=== PATIENT | male | born 1965 | race Caucasian/White ===

== ENCOUNTER 2019-12-05 14:13 | Emergency (ER) | payer BC ==
[2019-12-05 15:38] LABS: ANION GAP 6.3; CHLORIDE,CL 105 mmol/L (101-111); SODIUM,NA 136 mmol/L (135-145)
[2019-12-05] MEDS ORDERED: Aspirin 81 MG Tab.Chew PO ONE (15:49)
[2019-12-05] MEDS ORDERED: Nitroglycerin 0.4 MG Tab.SL SL ONE (15:49)
--- NOTE | 2019-12-05 15:59 | EDM.PDOC ---
ED HPI GENERAL MEDICAL PROBLEM - General Chief Complaint: Respiratory Problem Stated Complaint: CANT BREATH Time Seen by Provider: 12/05/19 15:45 Source of Information: Reports: Patient History Limitations: Reports: No Limitations - History of Present Illness INITIAL COMMENTS - FREE TEXT/NARRATIVE: This 54 yo male patient reports to the ED due to waking up from sleep at 1400 with increased shortness of breath and chest "tightness". The patient reports he has a history of elevated cholesterol levels and elevated triglycerides. The patient reports he took 1500 mg of Tylenol at symptom onset. The patient reports his chest tightness continues to be rated at a 6/10. Onset: Today Onset Date: 12/05/19 Onset Time: 14:00 Duration: Constant Location: Reports: Chest Quality: Reports: Dull, Other (pressure) Severity: Moderate Improves with: Reports: None Worsens with: Reports: None Context: Reports: Other Associated Symptoms: Reports: Chest Pain ("pressure") Middle Chest Pain Score (Numeric/FACES): 8 - Related Data Allergies Allergy/AdvReac Type Severity Reaction Status Date / Time Penicillins Allergy Anaphylactic Verified 12/05/19 15:02 Shock Home Meds: Home Meds Fluticasone Propionate [Flonase] 2 spray BRADEN ASDIRECTED 12/05/19 [History] Lisinopril/Hydrochlorothiazide [Lisinopril-Hctz 20-25 mg Tab] 1 tab PO DAILY [History] hydrOXYzine HCL [hydrOXYzine] 25 mg PO ASDIRECTED PRN 12/05/19 [History] Past Medical History HEENT History: Reports: None Cardiovascular History: Reports: Hypertension Respiratory History: Reports: Asthma Other Respiratory History: exercise induced Gastrointestinal History: Reports: None Genitourinary History: Reports: None Musculoskeletal History: Reports: None Neurological History: Reports: None Psychiatric History: Reports: None Endocrine/Metabolic History: Reports: None Hematologic History: Reports: None Immunologic History: Reports: None Oncologic (Cancer) History: Reports: None Dermatologic History: Reports: None - Infectious Disease History Infectious Disease History: Reports: None - Past Surgical History Head Surgeries/Procedures: Reports: None Social & Family History - Tobacco Use Smoking Status *Q: Never Smoker Second Hand Smoke Exposure: No - Caffeine Use Caffeine Use: Reports: Coffee - Recreational Drug Use Recreational Drug Use: No ED ROS GENERAL - Review of Systems Review Of Systems: Comprehensive ROS is negative, except as noted in HPI. ED EXAM, GENERAL - Physical Exam Exam: See Below Exam Limited By: No Limitations General Appearance: Alert, WD/WN, Moderate Distress Eye Exam: Bilateral Eye: EOMI, Normal Inspection, PERRL Ears: Normal External Exam, Normal Canal, Hearing Grossly Normal, Normal TMs Nose: Normal Inspection, Normal Mucosa, No Blood Throat/Mouth: Normal Inspection, Normal Lips, Normal Teeth, Normal Gums, Normal Oropharynx, Normal Voice, No Airway Compromise Head: Atraumatic, Normocephalic Neck: Normal Inspection, Supple, Non-Tender, Full Range of Motion Respiratory/Chest: No Respiratory Distress, Lungs Clear, Normal Breath Sounds, No Accessory Muscle Use, Chest Non-Tender Cardiovascular: Normal Peripheral Pulses, Regular Rate, Rhythm, No Edema, No Gallop, No JVD, No Murmur, No Rub GI/Abdominal: Normal Bowel Sounds, Soft, Non-Tender, No Organomegaly, No Distention, No Abnormal Bruit, No Mass (Male) Exam: Deferred Rectal (Males) Exam: Deferred Back Exam: Normal Inspection, Full Range of Motion, NT Extremities: Normal Inspection, Normal Range of Motion, Non-Tender, Normal Capillary Refill, No Pedal Edema Neurological: Alert, Oriented, CN II-XII Intact, Normal Cognition, Normal Gait, Normal Reflexes, No Motor/Sensory Deficits Psychiatric: Normal Affect, Normal Mood Skin Exam: Warm, Dry, Intact, Normal Color, No Rash Lymphatic: No Adenopathy Course - Vital Signs Last Recorded V/S: Last Vital Signs Temp 35.8 C L 12/05/19 14:56 Pulse 89 12/05/19 16:52 Resp 19 12/05/19 16:52 BP 118/73 12/05/19 16:52 Pulse Ox 99 12/05/19 16:52 - Orders/Labs/Meds Orders: Active Orders 24 hr Category Date Time Status EKG Documentation Completion [RC] URGENT Care 12/05/19 15:10 Ordered Enoxaparin [Lovenox] Med 12/05/19 16:58 Once 100 mg SUBCUT ONETIME ONE Medication Orders Enoxaparin Sodium (Lovenox) 100 mg SUBCUT ONETIME ONE Stop: 12/05/19 16:59 Labs: Laboratory Tests 12/05/19 12/05/19 Range/Units 15:16 15:16 WBC 8.7 (5.0-10.0) 10^3/uL RBC 5.29 (4.6-6.2) 10^6/uL Hgb 15.6 (14.0-18.0) g/dL Hct 45.4 (40.0-54.0) % MCV 85.8 (80-100) fL MCH 29.5 (27.0-34.0) pg MCHC 34.4 (33.0-35.0) g/dL Plt Count 277 (150-450) 10^3/uL Neut % (Auto) 61.1 (42.2-75.2) % Lymph % (Auto) 22.8 (20.5-50.1) % [place] % (Auto) 11.5 H (2-8) % Eos % (Auto) 3.3 H (1.0-3.0) % Baso % (Auto) 1.3 H (0.0-1.0) % Sodium 136 (135-145) mmol/L Potassium 3.3 L (3.6-5.0) mmol/L Chloride 105 (101-111) mmol/L Carbon Dioxide 28.0 (21.0-31.0) mmol/L Anion Gap 6.3 BUN 19 H (7-18) mg/dL Creatinine 1.0 (0.6-1.3) mg/dL Est Cr Clr Drug Dosing 92.03 mL/min Estimated GFR (MDRD) > 60 BUN/Creatinine Ratio 19.00 Glucose 111 H (74-105) mg/dL Calcium 8.6 (8.4-10.2) mg/dl Total Bilirubin 0.8 (0.2-1.0) mg/dL AST 35 (10-42) IU/L ALT 41 (10-60) IU/L Alkaline Phosphatase 59 (42-121) IU/L Troponin I 0.06 H* (0.00-0.02) ng/ml Total Protein 6.5 L (6.7-8.2) g/dl Albumin 3.7 (3.2-5.5) g/dl Globulin 2.8 Albumin/Globulin Ratio 1.32 Meds: Medications Generic Name Dose Route Start Last Admin Trade Name Freq PRN Reason Stop Dose Admin Enoxaparin Sodium 100 mg 12/05/19 16:58 Lovenox SUBCUT 12/05/19 16:59 ONETIME ONE Discontinued Medications Generic Name Dose Route Start Last Admin Trade Name Maria M PRN Reason Stop Dose Admin Aspirin 324 mg 12/05/19 15:49 12/05/19 15:55 Aspirin PO 12/05/19 15:50 324 mg ONETIME ONE Administration Nitroglycerin 0.4 mg 12/05/19 15:49 12/05/19 15:56 Nitrostat SL 12/05/19 15:50 0.4 mg ONETIME ONE Administration Departure - Departure Time of Disposition: 16:59 Disposition: Home, Self-Care 01 Condition: Fair Clinical Impression: NSTEMI (non-ST elevated myocardial infarction), Elevated troponin I level - Discharge Information *PRESCRIPTION DRUG MONITORING PROGRAM REVIEWED*: Not Applicable *COPY OF PRESCRIPTION DRUG MONITORING REPORT IN PATIENT GRICELDA: Not Applicable Forms: Interfacility Transfer EMTALA Care Plan Goals: Discussed the patient's history, examination, lab, EKG and x-ray results with Dr. Pinon (Hospitalist with [facility] in [place]). Dr. Pinon accepted the patient for continued evaluation and management. Dr. Pinon requested that the patient receive a dose of Lovenox (100mg) prior to transfer. The patient will be transported by [facility]. Sepsis Event Note - Evaluation Sepsis Screening Result: No Definite Risk - Focused Exam Vital Signs: Vital Signs Temp Pulse Resp BP BP Pulse Ox 12/05/19 16:52 89 19 118/73 99 12/05/19 15:57 154/91 H 12/05/19 15:56 162/97 H 12/05/19 14:56 35.8 C L 95 16 159/104 H 100 Date Exam was Performed: 12/05/19 Time Exam was Performed: 16:59 - My Orders Last 24 Hours: My Active Orders 12/05/19 15:10 EKG Documentation Completion [RC] URGENT 12/05/19 16:58 Enoxaparin [Lovenox] 100 mg SUBCUT ONETIME ONE - Assessment/Plan Last 24 Hours: My Active Orders 12/05/19 15:10 EKG Documentation Completion [RC] URGENT 12/05/19 16:58 Enoxaparin [Lovenox] 100 mg SUBCUT ONETIME ONE
--- NOTE | 2019-12-05 16:32 | CR ---
EXAMINATION: Chest 1V Frontal SEX: Male AGE: 54 years CLINICAL HISTORY: 54-year-old male shortness of breath and chest pain. INTERPRETATION: Negative exam. Normal cardiac silhouette and pulmonary vascularity. No congestion, cephalization of flow, alveolar edema or dependent effusion. (Oxygen cannula). No lung mass, hilar lymphadenopathy or focal lobar pneumonia. No atelectasis/collapse. No pneumothorax or pneumomediastinum.
[2019-12-05] MEDS ORDERED: Enoxaparin 100 MG/1 ML Syringe SUBCUT ONE (16:58)
== END 2019-12-05 17:14 ==
LOC: DL.ED 14:13
DX: I21.4 Non-ST elevation (NSTEMI) myocardial infarction (principal); R79.89 Other specified abnormal findings of blood chemistry; I10 Essential (primary) hypertension; J45.909 Unspecified asthma, uncomplicated; Z88.0 Allergy status to penicillin
CPT/HCPCS: 36415; 71045; 80053; 84484; 85025; 93005; 96372; 99285; A9270; J1650

== ENCOUNTER 2020-06-10 00:24 | Emergency (ER) | payer BC ==
[2020-06-10] MEDS ORDERED: GI Cocktail Oral Solution 30 ML PO ONE (00:53)
--- NOTE | 2020-06-10 00:54 | EDM.PDOC ---
ED HPI GENERAL MEDICAL PROBLEM - General Chief Complaint: Chest Pain Stated Complaint: CHEST PAIN Time Seen by Provider: 06/10/20 00:53 Source of Information: Reports: Patient History Limitations: Reports: No Limitations - History of Present Illness INITIAL COMMENTS - FREE TEXT/NARRATIVE: gives recurrent h/o heaviness pressure burning like sensation in upper lid chest. was here for same few months ago was Dx with some kind of acid reflux and sleep apnoea. but never had sleep study done due to busy work schedule. Chest Pain Score (Numeric/FACES): 7 - Related Data Allergies Allergy/AdvReac Type Severity Reaction Status Date / Time Penicillins Allergy Anaphylactic Verified 06/10/20 00:29 Shock Home Meds: Home Meds Fluticasone Propionate [Flonase] 2 spray BRADEN ASDIRECTED 12/05/19 [History] Lisinopril/Hydrochlorothiazide [Lisinopril-Hctz 20-25 mg Tab] 1 tab PO DAILY 12/05/19 [History] hydrOXYzine HCL [hydrOXYzine] 25 mg PO ASDIRECTED PRN 12/05/19 [History] Past Medical History HEENT History: Reports: None Cardiovascular History: Reports: Hypertension, [place] Respiratory History: Reports: Asthma Other Respiratory History: exercise induced Gastrointestinal History: Reports: None Genitourinary History: Reports: None Musculoskeletal History: Reports: None Neurological History: Reports: None Psychiatric History: Reports: None Endocrine/Metabolic History: Reports: None Hematologic History: Reports: None Immunologic History: Reports: None Oncologic (Cancer) History: Reports: None Dermatologic History: Reports: None - Infectious Disease History Infectious Disease History: Reports: None - Past Surgical History Head Surgeries/Procedures: Reports: None Social & Family History - Family History Family Medical History: Noncontributory - Tobacco Use Smoking Status *Q: Never Smoker Second Hand Smoke Exposure: No - Caffeine Use Caffeine Use: Reports: Coffee - Recreational Drug Use Recreational Drug Use: No ED ROS GENERAL - Review of Systems Review Of Systems: Comprehensive ROS is negative, except as noted in HPI. ED EXAM, GENERAL - Physical Exam Exam: See Below Exam Limited By: No Limitations General Appearance: Alert, WD/WN, Anxious, Mild Distress Ears: Hearing Grossly Normal Throat/Mouth: Normal Voice, No Airway Compromise Head: Atraumatic Neck: Non-Tender, Full Range of Motion Respiratory/Chest: No Respiratory Distress Cardiovascular: Regular Rate, Rhythm GI/Abdominal: Soft, Non-Tender Neurological: Alert, Oriented, Normal Cognition, Normal Gait, No Motor/Sensory Deficits Psychiatric: Flat Affect Skin Exam: Warm, Dry, Normal Color Lymphatic: No Adenopathy Course - Vital Signs Last Recorded V/S: Last Vital Signs Temp 36.3 C 06/10/20 00:30 Pulse 84 06/10/20 00:30 Resp 16 06/10/20 00:30 BP 168/93 H 06/10/20 00:30 Pulse Ox 98 06/10/20 00:30 - Orders/Labs/Meds Orders: Active Orders 24 hr Category Date Time Status EKG 12 Lead [EKG Documentation Completion] [RC] STAT Care 06/10/20 00:37 Active INR,PT,PROTHROMBIN TIME [COAG] Stat Lab 06/10/20 01:45 Ordered PTT,PARTIAL THROMBOPLSTIN TIME [COAG] Stat Lab 06/10/20 01:45 Ordered Heparin Sodium/0.45% NaCl [Heparin 25,000 Units in 1/2 Med 06/10/20 02:00 Ordered NS 500 ML] 25,000 units in 500 ml IV TITRATE Medication Orders Heparin Sodium/Sodium Chloride (Heparin 25,000 Units In 1/2 Ns 500 Ml) 25,000 units in 500 mls @ 27.172 mls/hr IV TITRATE MARYBETH; Protocol Labs: Laboratory Tests 06/10/20 06/10/20 Range/Units 00:38 00:38 WBC 9.2 (5.0-10.0) 10^3/uL RBC 5.88 (4.6-6.2) 10^6/uL Hgb 17.6 D (14.0-18.0) g/dL Hct 50.8 (40.0-54.0) % MCV 86.4 (80-100) fL MCH 29.9 (27.0-34.0) pg MCHC 34.6 (33.0-35.0) g/dL Plt Count 357 D (150-450) 10^3/uL Neut % (Auto) 66.6 (42.2-75.2) % Lymph % (Auto) 21.3 (20.5-50.1) % [place] % (Auto) 9.6 H (2-8) % Eos % (Auto) 1.4 (1.0-3.0) % Baso % (Auto) 1.1 H (0.0-1.0) % Sodium 142 (136-145) mmol/L Potassium 4.3 (3.5-5.1) mmol/L Chloride 103 (98-107) mmol/L Carbon Dioxide 30 (21-32) mmol/L Anion Gap 13.3 H (7-13) mEq/L BUN 18 (7-18) mg/dL Creatinine 1.43 H (0.70-1.30) mg/dL Est Cr Clr Drug Dosing 63.63 mL/min Estimated GFR (MDRD) 52 BUN/Creatinine Ratio 12.6 (No establ ref range) Glucose 95 (74-99) mg/dL Calcium 8.7 (8.5-10.1) mg/dL Total Bilirubin 0.6 (0.2-1.0) mg/dL AST 63 H (15-37) U/L ALT 131 H (16-63) U/L Alkaline Phosphatase 80 (46-116) U/L Troponin I 0.103 H* (0.000-0.056) ng/mL Total Protein 7.1 (6.4-8.2) g/dL Albumin 3.8 (3.4-5.0) g/dL Globulin 3.3 Albumin/Globulin Ratio 1.2 Meds: Medications Generic Name Dose Route Start Last Admin Trade Name Freq PRN Reason Stop Dose Admin Heparin Sodium/Sodium Chloride 25,000 units in 500 mls @ 27.172 mls/hr 06/10/20 02:00 Heparin 25,000 Units In 1/2 Ns 500 Ml IV TITRATE MARYBETH Protocol 12 UNITS/KG/HR Discontinued Medications Generic Name Dose Route Start Last Admin Trade Name Freq PRN Reason Stop Dose Admin Al Hydroxide/Mg Hydroxide 30 ml 06/10/20 00:53 06/10/20 01:05 Gi Cocktail PO 06/10/20 00:54 30 ml ONETIME ONE Administration Aspirin 324 mg 06/10/20 01:46 Aspirin PO 06/10/20 01:47 ONETIME ONE - Re-Assessments/Exams Free Text/Narrative Re-Assessment/Exam: 06/10/20 01:48 re-exam; s/p GI cocktail = minimal relief. case discussed with Dr Casarez @ [facility] who kindly accepted pt. Departure - Departure Time of Disposition: 01:49 Disposition: DC/Tfer to [facility] 02 Reason for Transfer *Q: Other Condition: Good Clinical Impression: NSTEMI (non-ST elevated myocardial infarction) Forms: Interfacility Transfer PHILIP Sepsis Event Note (ED) - Evaluation Sepsis Screening Result: No Definite Risk - Focused Exam Vital Signs: Vital Signs Temp Pulse Resp BP Pulse Ox 06/10/20 00:30 36.3 C 84 16 168/93 H 98 - My Orders Last 24 Hours: My Active Orders 06/10/20 00:37 EKG 12 Lead [EKG Documentation Completion] [RC] STAT 06/10/20 01:45 INR,PT,PROTHROMBIN TIME [COAG] Stat PTT,PARTIAL THROMBOPLSTIN TIME [COAG] Stat 06/10/20 02:00 Heparin Sodium/0.45% NaCl [Heparin 25,000 Units in 1/2 NS 500 ML] 25,000 units in 500 ml IV TITRATE - Assessment/Plan Last 24 Hours: My Active Orders 06/10/20 00:37 EKG 12 Lead [EKG Documentation Completion] [RC] STAT 06/10/20 01:45 INR,PT,PROTHROMBIN TIME [COAG] Stat PTT,PARTIAL THROMBOPLSTIN TIME [COAG] Stat 06/10/20 02:00 Heparin Sodium/0.45% NaCl [Heparin 25,000 Units in 1/2 NS 500 ML] 25,000 units in 500 ml IV TITRATE
[2020-06-10 01:07] LABS: ANION GAP 13.3 mEq/L (7-13)
[2020-06-10] MEDS ORDERED: Aspirin 81 MG Tab.Chew PO ONE (01:46)
[2020-06-10] MEDS ORDERED: Heparin Sodium 5,000 Units/ML Vial IVPUSH ONE (01:52)
[2020-06-10] MEDS ORDERED: Heparin Sodium/0.45% NaCl 25,000 UNITS/500 ML BAG IV SCH (02:00)
[2020-06-10 02:21] LABS: PTT,PARTIAL THROMBOPLSTIN TIME 22.5 SEC (22.0-34.0)
== END 2020-06-10 02:29 ==
LOC: DL.ED 00:24
DX: I21.4 Non-ST elevation (NSTEMI) myocardial infarction (principal); I10 Essential (primary) hypertension; I25.2 Old myocardial infarction; J45.909 Unspecified asthma, uncomplicated; Z88.0 Allergy status to penicillin; Z79.899 Other long term (current) drug therapy
CPT/HCPCS: 36415; 80053; 84484; 85025; 85610; 85730; 93005; 96365; 99285; A9270; J1644; 99284

== ENCOUNTER 2020-08-11 09:17 | Emergency (ER) | payer BC ==
--- NOTE | 2020-08-11 09:26 | EDM.PDOC ---
ED HPI GENERAL MEDICAL PROBLEM - General Chief Complaint: ENT Problem Stated Complaint: throat hurts feels air bubble stuck in throat? Time Seen by Provider: 08/11/20 09:24 Source of Information: Reports: Patient, Old Records, RN, RN Notes Reviewed History Limitations: Reports: No Limitations - History of Present Illness INITIAL COMMENTS - FREE TEXT/NARRATIVE: 55 y.o M presents with sensation of a pill stuck in his throat. Pt states that last night he was eating dinner when he felt like food or an air bubble was stuck in his throat. This morning he still feels like there is a pill or swelling in his throat. Pt states he took 1500mg Tylenol which relieved the swelling and the sensation of something stuck briefly, but it didn't last long. Pt states this morning that he took Omeprazole 40mg and then felt like the pill got stuck in his throat. Pt states he has been drinking H20 without relief. Pt has a Hx of this happening previously 1 other time which resolved and GERD and is supposed to be scheduling an EGD soon. Denies pain. Has been able to drink water and keep it down. He has not eaten any solid food since last evening. Onset: Gradual Duration: Constant Location: Reports: Other (Throat) Quality: Reports: Ache, Burning, Other (Inflammation) Severity: Moderate Improves with: Reports: None Worsens with: Reports: Eating, Other (Swallowing) Associated Symptoms: Reports: No Other Symptoms - Related Data Allergies Allergy/AdvReac Type Severity Reaction Status Date / Time Penicillins Allergy Anaphylactic Verified 06/10/20 00:29 Shock Home Meds: Home Meds Lisinopril/Hydrochlorothiazide [Lisinopril-Hctz 20-25 mg Tab] 1 each PO DAILY 08/11/20 [History] Omeprazole 40 mg PO DAILY 08/11/20 [History] carvediloL [Carvedilol] 6.25 mg PO DAILY 08/11/20 [History] Past Medical History HEENT History: Reports: None Cardiovascular History: Reports: CAD, Hypertension, [place] Respiratory History: Reports: Asthma Other Respiratory History: exercise induced Gastrointestinal History: Reports: None Genitourinary History: Reports: None Musculoskeletal History: Reports: None Neurological History: Reports: None Psychiatric History: Reports: None Endocrine/Metabolic History: Reports: None Hematologic History: Reports: None Immunologic History: Reports: None Oncologic (Cancer) History: Reports: None Dermatologic History: Reports: None - Infectious Disease History Infectious Disease History: Reports: None - Past Surgical History Head Surgeries/Procedures: Reports: None Cardiovascular Surgical History: Reports: Other (See Below) (Angiogram) Social & Family History - Family History Family Medical History: Noncontributory - Tobacco Use Tobacco Use Status *Q: Never Tobacco User - Caffeine Use Caffeine Use: Reports: Coffee - Living Situation & Occupation Occupation: Employed ED ROS ENT - Review of Systems Review Of Systems: Comprehensive ROS is negative, except as noted in HPI. ED EXAM, ENT - Physical Exam Exam: See Below Exam Limited By: No Limitations General Appearance: Alert, WD/WN, No Apparent Distress, Anxious Eye Exam: Bilateral Eye: Normal Inspection Ears: Normal External Exam, Normal Canal, Hearing Grossly Normal, Normal TMs Nose: Normal Inspection, Normal Mucousa, No Blood Mouth/Throat: Normal Gums, Normal Lips, Normal Oropharynx, Normal Teeth, Hoarse Voice. No: Drooling, Gum Swelling, Lip Swelling, Muffled Voice, Perioral Cyanosis, Peritonsillar Mass, Pharyngeal Erythema, Throat Swelling (at the visible portion of the oropharnyx.), Tongue Swelling, Tonsillar Erythema, Tonsillar Exudates, Tonsillar Swelling, Trismus, Uvular Deviation, Uvular Edema Head: Atraumatic, Normocephalic Neck: Normal Inspection, Supple, Non-Tender, Full Range of Motion. No: Lymphadenopathy (L), Lymphadenopathy (R) Respiratory/Chest: No Respiratory Distress, Lungs Clear, Normal Breath Sounds, No Accessory Muscle Use, Chest Non-Tender. No: Crackles, Rales, Rhonchi, Wheezing, Stridor Cardiovascular: Normal Peripheral Pulses, Regular Rate, Rhythm, No Edema, No Gallop, No JVD, No Murmur, No Rub GI/Abdominal: Normal Bowel Sounds, Soft, Non-Tender, No Organomegaly, No Distention, No Abnormal Bruit, No Mass Back: Normal Inspection Extremities: Normal Inspection Neurological: Alert, Oriented, CN II-XII Intact, Normal Cognition, Normal Gait, No Motor/Sensory Deficits Psychiatric: Normal Affect, Anxious Skin: Warm, Dry, Intact, Normal Color, No Rash Course - Vital Signs Last Recorded V/S: Last Vital Signs Temp 97.3 F 08/11/20 09:30 Pulse 84 08/11/20 09:30 Resp 18 08/11/20 09:30 BP 160/70 H 08/11/20 09:30 Pulse Ox 98 08/11/20 09:30 - Orders/Labs/Meds Meds: Medications Discontinued Medications Generic Name Dose Route Start Last Admin Trade Name Maria M PRN Reason Stop Dose Admin Al Hydroxide/Mg Hydroxide 30 ml 08/11/20 09:29 08/11/20 09:34 Gi Cocktail PO 08/11/20 09:30 30 ml ONETIME ONE Administration Dexamethasone 8 mg 08/11/20 10:05 08/11/20 10:18 Dexamethasone PO 08/11/20 10:06 8 mg ONETIME ONE Administration Famotidine 40 mg 08/11/20 10:04 08/11/20 10:18 Pepcid PO 08/11/20 10:05 40 mg ONETIME ONE Administration - Radiology Interpretation Free Text/Narrative:: [facility] Final Radiology Report Call: [phone] assistance Online chat: [email or web address] Name: FROILAN MCCARTY Age: 55Years M Date: 08/11/2020 SSN: -- : [id number] Study: CR NECK SOFT TISSUE Requesting Physician: ERICK MENA Images: 2 Addl Studies: Provided Clinical History: Foreign body sensation s/p pill getting stuck Contrast: Contrast Medium: Contrast Amount: Contrast Method: CONFIDENTIALITY STATEMENT This report is intended only for use by the referring physician, and only in accordance with law. If you received this in error, call [phone]. Page 1 of 1 PROCEDURE INFORMATION: Exam: XR Soft Tissue Neck Exam date and time: 08/11/2020 9:37 AM Age: 55 years old Clinical indication: Other: Foreign body sensation S/P pill getting stuck TECHNIQUE: Imaging protocol: XR of the soft tissues of the neck. COMPARISON: No relevant prior studies available. FINDINGS: Airway: Normal. No abnormal narrowing. Soft tissues: Normal. Normal epiglottis. Bones/joints: Cervical vertebral body height and alignment are well maintained. Moderate disc space narrowing is present at C5-C6 and C6-C7 with endplate sclerosis and endplate osteophyte formation. No fractures are identified. Facet joints are in anatomic alignment. IMPRESSION: 1. Degenerative change without foreign body identified. Thank you for allowing us to participate in the care of your patient. Dictated and Authenticated by: Kris Gonzáles MD 08/11/2020 10:02 AM Central Time ([place] & [place]) Departure - Departure Time of Disposition: 10:33 Disposition: Home, Self-Care 01 Condition: Good Clinical Impression: Sensation of foreign body in esophagus - Discharge Information *PRESCRIPTION DRUG MONITORING PROGRAM REVIEWED*: Not Applicable *COPY OF PRESCRIPTION DRUG MONITORING REPORT IN PATIENT GRICELDA: Not Applicable Instructions: Esophagitis, Esophageal Stricture Forms: ED Department Discharge Additional Instructions: Rx: Pepcid (Famotidine) 40mg Soft diet for next 3 days. Chew food well. Drink a full glass of water after eating and with pills. Follow up for upper endoscopy and GI evaluation as planned. Sepsis Event Note (ED) - Focused Exam Vital Signs: Vital Signs Temp Pulse Resp BP Pulse Ox 08/11/20 09:30 97.3 F 84 18 160/70 H 98
[2020-08-11] MEDS ORDERED: GI Cocktail Oral Solution 30 ML PO ONE (09:29)
--- NOTE | 2020-08-11 10:02 | CR ---
PROCEDURE INFORMATION: Exam: XR Soft Tissue Neck Exam date and time: 08/11/2020 9:37 AM Age: 55 years old Clinical indication: Other: Foreign body sensation S/P pill getting stuck TECHNIQUE: Imaging protocol: XR of the soft tissues of the neck. COMPARISON: No relevant prior studies available. FINDINGS: Airway: Normal. No abnormal narrowing. Soft tissues: Normal. Normal epiglottis. Bones/joints: Cervical vertebral body height and alignment are well maintained. Moderate disc space narrowing is present at C5-C6 and C6-C7 with endplate sclerosis and endplate osteophyte formation. No fractures are identified. Facet joints are in anatomic alignment. IMPRESSION: 1. Degenerative change without foreign body identified.
[2020-08-11] MEDS ORDERED: Famotidine 20 MG Tab PO ONE (10:04)
[2020-08-11] MEDS ORDERED: Dexamethasone 4 MG Tab PO ONE (10:05)
== END 2020-08-11 10:39 | disposition home or self-care (01) ==
LOC: DL.ED 09:17
DX: T18.198A Other foreign object in esophagus causing other injury, initial encounter (principal); I10 Essential (primary) hypertension; J45.909 Unspecified asthma, uncomplicated; I25.2 Old myocardial infarction; I25.10 Atherosclerotic heart disease of native coronary artery without angina pectoris; Z88.0 Allergy status to penicillin; Z79.899 Other long term (current) drug therapy
CPT/HCPCS: 70360; 99283; A9270; J8540

== ENCOUNTER 2020-08-24 06:06 | Day surgery (SDC) | payer BC ==
[2020-08-24] MEDS ORDERED: Midazolam 1 MG/ML 2 ML SDV IV ONE ×11 (06:07→07:34)
[2020-08-24] MEDS ORDERED: Benzocaine 20% Topical Spray UD MUCMEM ONE ×2 (06:17→07:29)
[2020-08-24] MEDS ORDERED: Midazolam 1 MG/ML 2 ML SDV ONE ×2 (06:17→07:22)
[2020-08-24] MEDS ORDERED: Dextrose 5%-0.45% NaCl 1,000 ML IV SCH (06:45)
--- NOTE | 2020-08-24 08:35 | OR ---
DATE: 08/24/2020 PREOPERATIVE DIAGNOSES: Dysphagia and gastroesophageal reflux disease. POSTOPERATIVE DIAGNOSES: Dysphagia and gastroesophageal reflux disease. PROCEDURE: Esophagogastroduodenoscopy with biopsy of gastric antrum for H pylori. ANESTHESIA: Conscious sedation with IV Versed. SPECIMEN: H pylori biopsy. PATHOLOGY: Pending. INDICATIONS FOR PROCEDURE: This 55-year-old male has significant gastroesophageal reflux disease and dysphagia symptoms that are worsening over the last several years. OPERATIVE FINDINGS: He does have a moderate-size hiatal hernia and a ring at the EG junction that is too large to be dilated. Stomach and duodenum are normal. RECOMMENDATION: This patient also had a lot of bile reflux into the stomach, which is a little bit unusual and some of the reflux, worsening symptoms he has may be due to bile reflux which is going to be nonresponsive to proton pump inhibitor. In any event, he may be a candidate for a laparoscopic Angelic fundoplication, but not done at this hospital. He would need to be referred to a slightly bigger place. They may require a preoperative 24-hour pH monitor to prove that he does have reflux, but that it is bile in nature. No other abnormalities were noted. Air was suctioned from the stomach, and the scope removed. [facility] /[id number]
== END 2020-08-24 09:41 | disposition home or self-care (01) ==
LOC: DL.ENDO 06:06
PROVIDERS: ATTEND Surgery
DX: K22.2 Esophageal obstruction (principal); K21.9 Gastro-esophageal reflux disease without esophagitis; K44.9 Diaphragmatic hernia without obstruction or gangrene; Z88.0 Allergy status to penicillin; Z79.899 Other long term (current) drug therapy; Z01.812 Encounter for preprocedural laboratory examination; Z20.828 Contact with and (suspected) exposure to other viral communicable diseases
CPT/HCPCS: 43239; 87077; A9270-GY; J2250; J7042; U0002

== ENCOUNTER 2020-08-31 01:46 | Emergency (ER) | payer BC ==
[2020-08-31] MEDS ORDERED: Glucagon,Human Recombinant 1 MG Vial IVPUSH ONE (01:53)
[2020-08-31] MEDS ORDERED: Famotidine 20 MG/2 ML SDV IVPUSH ONE (02:03)
[2020-08-31] MEDS ORDERED: GI Cocktail Oral Solution 30 ML PO ONE (02:03)
[2020-08-31] MEDS ORDERED: Dexamethasone 4 MG/ML SDV IVPUSH ONE (02:54)
--- NOTE | 2020-08-31 03:12 | EDM.PDOC ---
ED HPI GENERAL MEDICAL PROBLEM - General Chief Complaint: ENT Problem Stated Complaint: FOOD STUCK IN THROAT Time Seen by Provider: 08/31/20 01:50 Source of Information: Reports: Patient History Limitations: Reports: No Limitations - History of Present Illness INITIAL COMMENTS - FREE TEXT/NARRATIVE: ED with c/o sensation something in his throat. Hx similar in past. Tonight ate salad, carrots got caught able to swallow and drank 2 large bottles of water. Seemed to get better, Took Flexeril for back about 2 hours ago and then felt it get caught, Feels scratchy now. EGD done 08/24 Dr Lin, Reflux Dz, Hiatal hernia. - Related Data Allergies Allergy/AdvReac Type Severity Reaction Status Date / Time Penicillins Allergy Anaphylactic Verified 08/31/20 01:56 Shock Home Meds: Home Meds Lisinopril/Hydrochlorothiazide [Lisinopril-Hctz 20-25 mg Tab] 1 each PO DAILY 08/11/20 [History] Omeprazole 40 mg PO DAILY 08/11/20 [History] carvediloL [Carvedilol] 3.125 mg PO BID 08/11/20 [History] Multivitamin [Multivitamins] 1 each PO DAILY 08/23/20 [History] Cyclobenzaprine HCl 10 mg PO Q8H PRN 08/31/20 [History] Past Medical History HEENT History: Reports: None, Impaired Vision Other HEENT History: wears glasses Cardiovascular History: Reports: CAD, Hypertension, [place] Respiratory History: Reports: Asthma, Sleep Apnea Other Respiratory History: exercise induced Gastrointestinal History: Reports: GERD, Hiatal Hernia, Other (See Below) Other Gastrointestinal History: bloated Genitourinary History: Reports: Chronic Renal Insuffiency Other Genitourinary History: Stage 3 Kidney Disease Musculoskeletal History: Reports: Osteoarthritis Neurological History: Reports: None Psychiatric History: Reports: None Endocrine/Metabolic History: Reports: None Hematologic History: Reports: None Immunologic History: Reports: None Oncologic (Cancer) History: Reports: None Dermatologic History: Reports: None - Infectious Disease History Infectious Disease History: Reports: Chicken Pox - Past Surgical History Head Surgeries/Procedures: Reports: None HEENT Surgical History: Reports: Tonsillectomy Cardiovascular Surgical History: Reports: Other (See Below) Other Cardiovascular Surgeries/Procedures: angiogram Respiratory Surgical History: Reports: None GI Surgical History: Reports: Appendectomy, EGD Male Surgical History: Reports: None Endocrine Surgical History: Reports: None Musculoskeletal Surgical History: Reports: None Oncologic Surgical History: Reports: None Social & Family History - Family History Family Medical History: No Pertinent Family History - Tobacco Use Tobacco Use Status *Q: Unknown Ever Used Tobacco - Caffeine Use Caffeine Use: Reports: Coffee, Energy Drinks Other Caffeine Use: AVERAGE OF 'ALOT' "COUPLE OF B ENERGY SHOTS, COUPLE ROCKSTARS EACH DAY" - Living Situation & Occupation Occupation: Employed ED ROS ENT - Review of Systems Review Of Systems: Comprehensive ROS is negative, except as noted in HPI. ED EXAM, ENT - Physical Exam Exam: See Below Exam Limited By: No Limitations General Appearance: Alert, Anxious, Mild Distress Eye Exam: Bilateral Eye: EOMI Ears: Normal External Exam Nose: Normal Inspection Mouth/Throat: Normal Inspection Head: Atraumatic, Normocephalic Neck: Normal Inspection, Full Range of Motion Respiratory/Chest: Lungs Clear, Normal Breath Sounds, Other (No respiratory distress, respiration non labored, taling full sentences ) Cardiovascular: Normal Peripheral Pulses, Regular Rate, Rhythm GI/Abdominal: Normal Bowel Sounds, Soft. No: Distended, Guarding Back: Normal Inspection Extremities: Normal Inspection Neurological: Alert, Oriented, Normal Cognition Psychiatric: Anxious Skin: Warm, Dry, Intact, Normal Color Course - Vital Signs Last Recorded V/S: Last Vital Signs Temp 96.1 F L 08/31/20 01:47 Pulse 97 08/31/20 01:47 Resp 20 08/31/20 01:47 BP 152/102 H 08/31/20 01:47 Pulse Ox 98 08/31/20 01:47 - Orders/Labs/Meds Meds: Medications Discontinued Medications Generic Name Dose Route Start Last Admin Trade Name Freq PRN Reason Stop Dose Admin Al Hydroxide/Mg Hydroxide 30 ml 08/31/20 02:03 08/31/20 02:26 Gi Cocktail PO 08/31/20 02:04 30 ml ONETIME ONE Administration Dexamethasone 6 mg 08/31/20 02:54 08/31/20 03:04 Decadron IVPUSH 08/31/20 02:55 6 mg ONETIME ONE Administration Famotidine 20 mg 08/31/20 02:03 08/31/20 02:19 Pepcid IVPUSH 08/31/20 02:04 20 mg ONETIME ONE Administration Glucagon 1 mg 08/31/20 01:53 08/31/20 02:14 Glucagen IVPUSH 08/31/20 01:54 1 mg ONETIME ONE Administration - Re-Assessments/Exams Free Text/Narrative Re-Assessment/Exam: 08/31/20 06:27 No airway compromise full conversation, clearing throat less after glucagon. Tolerating liquids without difficulty Departure - Departure Time of Disposition: 03:43 Disposition: Home, Self-Care 01 Condition: Good Clinical Impression: Hiatal hernia with GERD, Foreign body sensation in throat - Discharge Information *PRESCRIPTION DRUG MONITORING PROGRAM REVIEWED*: No *COPY OF PRESCRIPTION DRUG MONITORING REPORT IN PATIENT GRICELDA: No Instructions: Food Choices for Gastroesophageal Reflux Disease, Adult, [id number], Gastroesophageal Reflux Disease, Adult, [id number] Forms: ED Department Discharge Additional Instructions: bland, soft pureed consistency diet follow up clinic with primary care for GI referral urgent follow up if unable to swallow saliva avoid throat clear or forcing burp Sepsis Event Note (ED) - Evaluation Sepsis Screening Result: No Definite Risk - Focused Exam Vital Signs: Vital Signs Temp Pulse Resp BP Pulse Ox 08/31/20 01:47 96.1 F L 97 20 152/102 H 98
== END 2020-08-31 03:50 | disposition home or self-care (01) ==
LOC: DL.ED 01:46
DX: R09.89 Other specified symptoms and signs involving the circulatory and respiratory systems (principal); K44.9 Diaphragmatic hernia without obstruction or gangrene; K21.9 Gastro-esophageal reflux disease without esophagitis; I25.10 Atherosclerotic heart disease of native coronary artery without angina pectoris; I12.9 Hypertensive chronic kidney disease with stage 1 through stage 4 chronic kidney disease, or unspecified chronic kidney disease; N18.30 Chronic kidney disease, stage 3 unspecified; J45.909 Unspecified asthma, uncomplicated; I25.2 Old myocardial infarction; Z79.899 Other long term (current) drug therapy; Z88.0 Allergy status to penicillin
CPT/HCPCS: 96374; 96375; 99283-25; A9270-GY; J1100; J1610; J3490

== ENCOUNTER 2020-09-30 15:10 | Emergency (ER) | payer BC ==
--- NOTE | 2020-09-30 15:26 | EDM.PDOC ---
ED HPI GENERAL MEDICAL PROBLEM - General Stated Complaint: RIGHT ALONSO CRACKED PER PATIENT Time Seen by Provider: 09/30/20 15:20 Source of Information: Reports: Patient History Limitations: Reports: No Limitations - History of Present Illness INITIAL COMMENTS - FREE TEXT/NARRATIVE: This 55 yo male patient reports to the ED due to hitting his right alonso on a trailer after tripping. The patient reports increased pain over the area that gets worse when walking or palpating the area. Onset Date: 09/29/20 Duration: Minutes:, Constant Location: Reports: Lower Extremity, Right Quality: Reports: Ache, Dull Severity: Moderate Improves with: Reports: None Worsens with: Reports: None Context: Reports: Activity Associated Symptoms: Reports: No Other Symptoms Right Lower Leg Pain Score (Numeric/FACES): 9 - Related Data Allergies Allergy/AdvReac Type Severity Reaction Status Date / Time Penicillins Allergy Anaphylactic Verified 09/30/20 15:30 Shock Home Meds: Home Meds Lisinopril/Hydrochlorothiazide [Lisinopril-Hctz 20-25 mg Tab] 1 each PO DAILY 08/11/20 [History] Omeprazole 40 mg PO DAILY 08/11/20 [History] carvediloL [Carvedilol] 3.125 mg PO BID 08/11/20 [History] Multivitamin [Multivitamins] 1 each PO DAILY 08/23/20 [History] Cyclobenzaprine HCl 10 mg PO Q8H PRN 08/31/20 [History] Past Medical History HEENT History: Reports: None, Impaired Vision Other HEENT History: wears glasses Cardiovascular History: Reports: CAD, Hypertension, [place] Respiratory History: Reports: Asthma, Sleep Apnea Other Respiratory History: exercise induced Gastrointestinal History: Reports: GERD, Hiatal Hernia, Other (See Below) Other Gastrointestinal History: bloated Genitourinary History: Reports: Chronic Renal Insuffiency Other Genitourinary History: Stage 3 Kidney Disease Musculoskeletal History: Reports: Osteoarthritis Neurological History: Reports: None Psychiatric History: Reports: None Endocrine/Metabolic History: Reports: None Hematologic History: Reports: None Immunologic History: Reports: None Oncologic (Cancer) History: Reports: None Dermatologic History: Reports: None - Infectious Disease History Infectious Disease History: Reports: Chicken Pox - Past Surgical History Head Surgeries/Procedures: Reports: None HEENT Surgical History: Reports: Tonsillectomy Cardiovascular Surgical History: Reports: Other (See Below) Other Cardiovascular Surgeries/Procedures: angiogram Respiratory Surgical History: Reports: None GI Surgical History: Reports: Appendectomy, EGD Male Surgical History: Reports: None Endocrine Surgical History: Reports: None Musculoskeletal Surgical History: Reports: None Oncologic Surgical History: Reports: None Social & Family History - Family History Family Medical History: No Pertinent Family History - Caffeine Use Caffeine Use: Reports: Coffee, Energy Drinks Other Caffeine Use: AVERAGE OF 'ALOT' "COUPLE OF B ENERGY SHOTS, COUPLE ROCKSTARS EACH DAY" - Living Situation & Occupation Occupation: Employed Review of Systems - Review of Systems Review Of Systems: Comprehensive ROS is negative, except as noted in HPI. ED EXAM, GENERAL - Physical Exam Exam: See Below Exam Limited By: No Limitations General Appearance: Alert, WD/WN, Moderate Distress Eye Exam: Bilateral Eye: EOMI, Normal Inspection, PERRL Ears: Normal External Exam, Normal Canal, Hearing Grossly Normal, Normal TMs Nose: Normal Inspection, Normal Mucosa, No Blood Throat/Mouth: Normal Inspection, Normal Lips, Normal Teeth, Normal Gums, Normal Oropharynx, Normal Voice, No Airway Compromise Head: Atraumatic, Normocephalic Neck: Normal Inspection, Supple, Non-Tender, Full Range of Motion Respiratory/Chest: No Respiratory Distress, Lungs Clear, Normal Breath Sounds, No Accessory Muscle Use, Chest Non-Tender Cardiovascular: Normal Peripheral Pulses, Regular Rate, Rhythm, No Edema, No Gallop, No JVD, No Murmur, No Rub GI/Abdominal: Normal Bowel Sounds, Soft, Non-Tender, No Organomegaly, No Distention, No Abnormal Bruit, No Mass (Male) Exam: Deferred Rectal (Males) Exam: Deferred Back Exam: Normal Inspection, Full Range of Motion, NT Extremities: Leg Pain (Right medial alonso pain with swelling and contusion) Neurological: Alert, Oriented, CN II-XII Intact, Normal Cognition, Normal Gait, Normal Reflexes, No Motor/Sensory Deficits Psychiatric: Normal Affect, Normal Mood Lymphatic: No Adenopathy Course - Vital Signs Last Recorded V/S: Last Vital Signs Temp 35.7 C L 09/30/20 15:26 Pulse 120 H 09/30/20 15:26 Resp 18 09/30/20 15:26 BP 174/112 H 09/30/20 15:26 Pulse Ox 96 09/30/20 15:26 - Orders/Labs/Meds Orders: Active Orders 24 hr Category Date Time Status Tibia Fibula Rt [CR] Urgent Exams 09/30/20 15:20 Ordered Departure - Departure Time of Disposition: 15:43 Disposition: Home, Self-Care 01 Condition: Fair Clinical Impression: Hematoma of right lower leg Contusion of right lower leg Qualifiers: Encounter type: initial encounter Qualified Code(s): S80.11XA - Contusion of right lower leg, initial encounter - Discharge Information *PRESCRIPTION DRUG MONITORING PROGRAM REVIEWED*: Not Applicable *COPY OF PRESCRIPTION DRUG MONITORING REPORT IN PATIENT GRICELDA: Not Applicable Instructions: Contusion, [id number], How to Use Cold Therapy, [id number] Forms: ED Department Discharge Care Plan Goals: The patient was advised of the examination and x-ray results during the visit. The patient was encouraged to rest, ice and elevate the extremity over the next 24 hours. The patient may take Tylenol or ibuprofen as directed for temporary symptom relief. If the patient has any additional symptoms or concerns, the patient should either return to the emergency department or visit his primary care facility. Sepsis Event Note (ED) - Focused Exam Vital Signs: Vital Signs Temp Pulse Resp BP Pulse Ox 09/30/20 15:26 35.7 C L 120 H 18 174/112 H 96 - My Orders Last 24 Hours: My Active Orders 09/30/20 15:20 Tibia Fibula Rt [CR] Urgent - Assessment/Plan Last 24 Hours: My Active Orders 09/30/20 15:20 Tibia Fibula Rt [CR] Urgent
--- NOTE | 2020-09-30 15:47 | CR ---
PROCEDURE INFORMATION: Exam: XR Right Tibia and Fibula Exam date and time: 09/30/2020 3:26 PM Age: 55 years old Clinical indication: Other: Bump mid alnoso from trailer hitch; Additional info: Right alonso pain TECHNIQUE: Imaging protocol: XR Right tibia and fibula. Views: 2 views. COMPARISON: No relevant prior studies available. FINDINGS: Bones/joints: Normal. Soft tissues: Normal. Other findings: IMPRESSION: No acute bony or soft tissue injury
== END 2020-09-30 15:56 | disposition home or self-care (01) ==
LOC: DL.ED 15:10
DX: S80.11XA Contusion of right lower leg, initial encounter (principal); I25.10 Atherosclerotic heart disease of native coronary artery without angina pectoris; I12.9 Hypertensive chronic kidney disease with stage 1 through stage 4 chronic kidney disease, or unspecified chronic kidney disease; N18.30 Chronic kidney disease, stage 3 unspecified; I25.2 Old myocardial infarction; J45.909 Unspecified asthma, uncomplicated; K21.9 Gastro-esophageal reflux disease without esophagitis; Z88.0 Allergy status to penicillin; Z79.899 Other long term (current) drug therapy; W22.8XXA Striking against or struck by other objects, initial encounter
CPT/HCPCS: 73590-RT; 99283

== ENCOUNTER 2020-10-08 17:20 | Emergency (ER) | payer BC ==
--- NOTE | 2020-10-08 18:55 | EDM.PDOC ---
<KarlyNahomy Sang - Last Filed: 10/09/20 01:45> ED HPI GENERAL MEDICAL PROBLEM - General Chief Complaint: Lower Extremity Injury/Pain Stated Complaint: SAID TO GET ULTRASOUND ON RIGHT ALONSO TONIGHT Time Seen by Provider: 10/08/20 18:00 - Related Data Allergies Allergy/AdvReac Type Severity Reaction Status Date / Time Penicillins Allergy Anaphylactic Verified 10/08/20 17:36 Shock Home Meds: Home Meds Lisinopril/Hydrochlorothiazide [Lisinopril-Hctz 20-25 mg Tab] 1 each PO DAILY 08/11/20 [History] Omeprazole 40 mg PO DAILY 08/11/20 [History] Multivitamin [Multivitamins] 1 each PO DAILY 08/23/20 [History] Aspirin [Aspirin EC] 81 mg PO DAILY 10/08/20 [History] Fluticasone Propionate [Flonase] 2 inh NS DAILY 10/08/20 [History] Metoprolol Tartrate 25 mg PO BID 10/08/20 [History] atorvaSTATin Calcium [Lipitor] 40 mg PO BEDTIME 10/08/20 [History] ED EXAM, GENERAL - Physical Exam Throat/Mouth: Normal Voice Respiratory/Chest: No Respiratory Distress Extremities: Normal Capillary Refill. No: Pedal Edema Skin Exam: Dry, Intact, Increased Warmth (mild lateral border of swollen area), Wound/Incision, Other (few small superficial blisters lateral border,) Departure - Departure Time of Disposition: 19:46 Disposition: Home, Self-Care 01 Condition: Good Clinical Impression: Contusion of right lower leg, sequela, Hematoma of right lower leg Cellulitis Qualifiers: Site of cellulitis: extremity Site of cellulitis of extremity: lower extremity Laterality: right Qualified Code(s): L03.115 - Cellulitis of right lower limb - Discharge Information *PRESCRIPTION DRUG MONITORING PROGRAM REVIEWED*: No *COPY OF PRESCRIPTION DRUG MONITORING REPORT IN PATIENT GRICELDA: No Instructions: Contusion, [id number], Cellulitis, Adult, [id number] Referrals: Becki Mares MD [Primary Care Provider] - Forms: ED Department Discharge Additional Instructions: elevate warm moist pack to area 15minutes three times daily limited weight bearing as possible take blood pressure medications as prescribed limit caffeine and energy drinks tylenol 650mg every 4 hours as needed for discomfort limit use of ibuprofen limit or avoid use of protein supplements follow up if worsening redness swelling or develop fever area may need drainage with US guide or Interventional radiology <Rohini Fortune - Last Filed: 10/09/20 08:42> ED HPI GENERAL MEDICAL PROBLEM - General Source of Information: Reports: Patient, Old Records, RN, RN Notes Reviewed History Limitations: Reports: No Limitations - History of Present Illness INITIAL COMMENTS - FREE TEXT/NARRATIVE: Patient presents to the ED from [facility] with complaints of pain to right lower extremity. The patient was seen in this facility on 09/30/2020 with similar complaints and was diagnosed with a hematoma/contusion of the RLE. The patient states the pain in his alonso has progressively worsened since this time to the point that he is experiencing significant pain with ambulation. He states he has not taken any medications for this pain. He denies loss of motor or sens ory function. Right Lower Leg Pain Score (Numeric/FACES): 5 Past Medical History HEENT History: Reports: Impaired Vision Other HEENT History: wears glasses Cardiovascular History: Reports: CAD, Hypertension, [place] Respiratory History: Reports: Asthma, Sleep Apnea Other Respiratory History: exercise induced Gastrointestinal History: Reports: GERD, Hiatal Hernia, Other (See Below) Other Gastrointestinal History: bloated Genitourinary History: Reports: Chronic Renal Insuffiency Other Genitourinary History: Stage 3 Kidney Disease Musculoskeletal History: Reports: Osteoarthritis Neurological History: Reports: None Psychiatric History: Reports: None Endocrine/Metabolic History: Reports: None Hematologic History: Reports: None Immunologic History: Reports: None Oncologic (Cancer) History: Reports: None Dermatologic History: Reports: None - Infectious Disease History Infectious Disease History: Reports: Chicken Pox - Past Surgical History Head Surgeries/Procedures: Reports: None HEENT Surgical History: Reports: Tonsillectomy Cardiovascular Surgical History: Reports: Other (See Below) Other Cardiovascular Surgeries/Procedures: angiogram Respiratory Surgical History: Reports: None GI Surgical History: Reports: Appendectomy, EGD Male Surgical History: Reports: None Endocrine Surgical History: Reports: None Musculoskeletal Surgical History: Reports: None Oncologic Surgical History: Reports: None Social & Family History - Family History Family Medical History: No Pertinent Family History - Tobacco Use Tobacco Use Status *Q: Never Tobacco User Second Hand Smoke Exposure: No - Caffeine Use Caffeine Use: Reports: Coffee, Energy Drinks, Soda, Tea Other Caffeine Use: AVERAGE OF 'ALOT' "COUPLE OF B ENERGY SHOTS, COUPLE ROCKSTARS EACH DAY" - Recreational Drug Use Recreational Drug Use: No - Living Situation & Occupation Occupation: Employed Review of Systems - Review of Systems Review Of Systems: Comprehensive ROS is negative, except as noted in HPI. ED EXAM, GENERAL - Physical Exam Exam: See Below Exam Limited By: No Limitations General Appearance: Alert, WD/WN, No Apparent Distress Extremities: Leg Pain (To RLE with walking and palpation), Increased Warmth (To contusion on RLE), Redness Neurological: Alert, Oriented, CN II-XII Intact, Normal Cognition, Normal Gait, No Motor/Sensory Deficits Psychiatric: Normal Affect, Normal Mood Skin Exam: Ecchymosis, Increased Warmth, Wound/Incision (Erythema surrounding hematoma on RLE), Other. No: Mottled, Pallor, Petechiae, Rash Course - Vital Signs Last Recorded V/S: Last Vital Signs Temp 99.1 F 10/08/20 19:40 Pulse 100 10/08/20 19:40 Resp 20 10/08/20 19:40 BP 164/92 H 10/08/20 19:46 Pulse Ox 98 10/08/20 19:40 - Orders/Labs/Meds Orders: Active Orders 24 hr Category Date Time Status CULTURE BLOOD [BC] Stat Lab 10/08/20 17:49 Received Labs: Laboratory Tests 10/08/20 10/08/20 10/08/20 Range/Units 17:49 17:49 17:49 WBC 10.1 H (5.0-10.0) 10^3/uL RBC 5.90 (4.6-6.2) 10^6/uL Hgb 17.8 (14.0-18.0) g/dL Hct 52.3 (40.0-54.0) % MCV 88.6 (80-100) fL MCH 30.2 (27.0-34.0) pg MCHC 34.0 (33.0-35.0) g/dL Plt Count 378 (150-450) 10^3/uL Neut % (Auto) 71.0 (42.2-75.2) % Lymph % (Auto) 17.6 L (20.5-50.1) % Hunt % (Auto) 8.6 H (2-8) % Eos % (Auto) 2.0 (1.0-3.0) % Baso % (Auto) 0.8 (0.0-1.0) % Sodium 140 (136-145) mmol/L Potassium 4.0 (3.5-5.1) mmol/L Chloride 102 (98-107) mmol/L Carbon Dioxide 28 (21-32) mmol/L Anion Gap 14.0 H (7-13) mEq/L BUN 22 H (7-18) mg/dL Creatinine 1.53 H (0.70-1.30) mg/dL Est Cr Clr Drug Dosing 59.47 mL/min Estimated GFR (MDRD) 48 BUN/Creatinine Ratio 14.4 (No establ ref range) Glucose 107 H (74-99) mg/dL Lactic Acid 1.9 (0.4-2.0) mmol/L Calcium 9.1 (8.5-10.1) mg/dL Total Bilirubin 0.8 (0.2-1.0) mg/dL AST 30 (15-37) U/L ALT 46 (16-63) U/L Alkaline Phosphatase 64 (46-116) U/L Total Protein 7.5 (6.4-8.2) g/dL Albumin 3.7 (3.4-5.0) g/dL Globulin 3.8 Albumin/Globulin Ratio 1.0 Meds: Medications Discontinued Medications Generic Name Dose Route Start Last Admin Trade Name Freq PRN Reason Stop Dose Admin Doxycycline Monohydrate 100 mg 10/08/20 19:53 10/08/20 20:02 Doxycycline Monohydrate PO 10/08/20 19:54 100 mg ONETIME ONE Administration - Re-Assessments/Exams Free Text/Narrative Re-Assessment/Exam: 10/08/20 WBC mildly elevated at 10.1 with no left shift present. Given elevated creatinine, will obtain an US of RLE over CT. Sepsis Event Note (ED) - Evaluation Sepsis Screening Result: No Definite Risk - My Orders Last 24 Hours: My Active Orders 10/08/20 17:49 CULTURE BLOOD [BC] Stat - Assessment/Plan Last 24 Hours: My Active Orders 10/08/20 17:49 CULTURE BLOOD [BC] Stat
--- NOTE | 2020-10-08 19:37 | US ---
PROCEDURE INFORMATION: Exam: US Right Non-Vascular Joint or Other Extremity Structure, Limited Lower Extremity Exam date and time: 10/08/2020 7:01 PM Age: 55 years old Clinical indication: Pain and injury or trauma; Fall; Lower leg; Right; Swelling (edema); Injury date: 1 week ago; Patient HX: RT. Lower extremity lump in the location of injury; Additional info: Hematoma to rle; Infection? TECHNIQUE: Imaging protocol: Right US joint or other nonvascular extremity structure or structures. Real-time ultrasound with image documentation. Limited study. Exam focused on the lower extremity in the region of clinical interest. COMPARISON: No relevant prior studies available. FINDINGS: Soft tissues: The area of clinical concern in the right medial lower calf is been examined sonographically. A hypoechoic fluid collection measuring 4.7 x 3.6 x 2.0 cm is identified. There is no color flow within the collection. IMPRESSION: In the area of palpable concern is a hypoechoic fluid collection as described. Probable hematoma. Seroma and/or abscess cannot be ruled out entirely. Consider aspiration/drainage
[2020-10-08] MEDS: Doxycycline Monohydrate 100 MG Cap PO ONE (20:02)
== END 2020-10-08 20:03 | disposition home or self-care (01) ==
LOC: DL.ED 17:20
DX: S80.11XS Contusion of right lower leg, sequela (principal); L03.115 Cellulitis of right lower limb; J45.909 Unspecified asthma, uncomplicated; I25.10 Atherosclerotic heart disease of native coronary artery without angina pectoris; I12.9 Hypertensive chronic kidney disease with stage 1 through stage 4 chronic kidney disease, or unspecified chronic kidney disease; N18.30 Chronic kidney disease, stage 3 unspecified; I25.2 Old myocardial infarction; K21.9 Gastro-esophageal reflux disease without esophagitis; M19.90 Unspecified osteoarthritis, unspecified site; Z88.0 Allergy status to penicillin; Z79.899 Other long term (current) drug therapy; Z79.82 Long term (current) use of aspirin
CPT/HCPCS: 36415; 76881-RT; 80053; 83605; 85025; 87040; 99283; 99284-25; A9270-GY